=== PATIENT | male | born 1955 | race Caucasian/White ===

== ENCOUNTER 2018-06-16 09:57 | Emergency (ER) | payer OTHER ==
[~2018-06-16] VITALS: Ht 162.6 cm; Wt 65.0 kg
[2018-06-16 09:59] VITALS: BP 151/73; PULSE 67; RESP 16; Ht 162.6 cm; Wt 65.0 kg
--- NOTE | 2018-06-16 12:23 | ERD ---
ER Documentation Chief Complaint Chief Complaint BIB RA FOR EVAL OF LEFT KNEE PAIN AND RAN OUT OF CATHETERS FOR SELF CATH HPI This is a 63-year-old male, who is currently homeless who presents with chronic knee pain that radiates to his left calf. He has not had a fever, he has no history of trauma, or lacerations. Symptoms are aggravated by movement, they are not alleviated by anything. He also self caths, and request Gómez catheter bags. This is been a chronic issue. ROS All systems reviewed and are negative except as per history of present illness. Physical Exam Vitals Vital Signs Date Temp Pulse Resp B/P (MAP) Pulse Ox O2 O2 Flow FiO2 Time Delivery Rate 06/16/18 98.3 67 16 151/73 99 09:59 (99) Physical Exam Const: Afebrile, nontoxic, disheveled Head: Atraumatic Eyes: Normal conjunctiva ENT: Normal external ears, nose and mouth. Neck: Resp: Normal respiratory effort Cardio: Abd: Soft, nontender Skin: Back: Ext: There is trace pitting edema bilaterally, there is no induration, no crepitus, there is no joint laxity, negative anterior posterior drawer sign Neur: Awake and alert Psych: Normal mood and affect Results 24 hrs Current Medications Medications Dose Sig/Rocky Start Time Status Last (Trade) Ordered Route PRN Stop Time Admin Dose Reason Admin 1,000 mg ONCE STAT 06/16/18 DC Acetaminophen PO 12:57 (Tylenol 06/16/18 12:58 Tab) Procedures/MDM 53-year-old male presents with knee pain. His pain is atraumatic, he has no joint effusion, no swelling, and no infectious signs or symptoms. Trace edema was noted, and ultrasound was ordered to evaluate for DVT, this was negative, x- ray shows osteoarthritis, consistent with his chronic pain. He was seen by social work, who assisted with resources, and extra catheters were provided to him, at discharge the patient was in no acute distress. Departure Diagnosis: Primary Impression: Knee pain Chronicity: chronic Laterality: left Qualified Codes: M25.562 - Pain in left knee; G89.29 - Other chronic pain Condition: CHRISTINE Mckeon MD Jun 16, 2018 12:23
[2018-06-16] MEDS ORDERED: ACETAMINOPHEN 500 MG TAB PO STA (12:57)
== END 2018-06-16 14:33 | disposition home or self-care (01) ==
LOC: FTE 09:57
DX: M25.562 Pain in left knee (principal)
CPT/HCPCS: 73562; 93971; Z7502; Z7610; A4310

== ENCOUNTER 2018-06-18 08:18 | Emergency (ER) | payer OTHER ==
[~2018-06-18] VITALS: Ht 157.5 cm; Wt 80.0 kg
[2018-06-18 08:21] VITALS: Ht 157.5 cm; Wt 80.0 kg
--- NOTE | 2018-06-18 08:51 | ERD ---
ER Documentation Chief Complaint Chief Complaint Patient need a supple of in and out urine catheters HPI This is a 63-year-old undomiciled male with a past medical history of urinary retention requiring self-catheterization for several years who is now presenting for catheter refill. The patient reportedly recently became homeless and has been having trouble with getting his straight catheter is refilled. The patient was here 2 days ago and spoke with the social security specialist who was able to help him set up an ability to refill the catheters as an outpatient. Unfortunately, the patient ran out this morning and is hoping to obtain a refill for the next 2 days. The patient reportedly self caths himself 4-6 times a day. The patient lasted this this morning. He does report mild suprapubic discomfort. The patient is also requesting that we complete a urinalysis as he does get urinary tract infections frequently. The patient does have urinary urgency, but this is chronic for him. He does not endorse any significant dysuria today. The patient reports that Keflex is usually given to him and has been successful in the past. The patient denies feeling sick recently. The patient denies fever or chills. The patient has had no headache or vision changes. The patient does not endorse neck or back pain. The patient denies lightheadedness or dizziness. The patient has had no chest pain or trouble breathing. The patient denies nausea or vomiting. The patient denies changes to bowel movements. The patient has had no focal deficits. The patient has had no weakness or numbness or tingling to the face or extremities. ROS All systems reviewed and are negative except as per history of present illness. Allergies Allergies: Coded Allergies: No Known Allergy (Unverified , 06/16/18) PMhx/Soc History of Surgery: No Anesthesia Reaction: No Hx Neurological Disorder: No Hx Respiratory Disorders: Yes (COPD) Hx Cardiac Disorders: Yes (Hypertension, hyperlipidemia, coronary artery disease with previous ND status post stenting) Hx Psychiatric Problems: Yes Hx Miscellaneous Medical Probl: Yes (Urinary retention, chronic kidney disease) Hx Alcohol Use: No Hx Substance Use: No Hx Tobacco Use: No FmHx Family History: No diabetes Physical Exam Vitals Vital Signs Date Temp Pulse Resp B/P (MAP) Pulse Ox O2 O2 Flow FiO2 Time Delivery Rate 06/18/18 98.3 72 20 162/79 99 08:21 (106) Physical Exam Const: No apparent distress, well-developed, well-nourished Head: Normocephalic, Atraumatic Eyes: Normal Conjunctiva. Extraocular movements grossly intact. ENT: Normal External Ears, Nose and Mouth. Neck: Full range of motion. No meningismus. Resp: Clear to auscultation bilaterally, No wheezes, rales or rhonchi Cardio: Regular rate and rhythm. No murmurs, rubs or gallops Abd: Soft, non distended. Mild suprapubic discomfort without exquisite tenderness. Normal bowel sounds Skin: No petechiae or rashes Back: No midline tenderness. No CVA tenderness Ext: No cyanosis, or edema Neur: Awake and alert, oriented 4. Cranial nerves intact. No facial droop. No focal deficits. Ambulatory with a walker. Psych: Normal Mood and Affect Results 24 hrs Laboratory Tests Test 06/18/18 08:55 Urine Color YELLOW Urine Clarity CLEAR Urine pH 6.0 Urine Specific [place] 1.012 Urine Ketones NEGATIVE mg/dL Urine Nitrite NEGATIVE mg/dL Urine Bilirubin NEGATIVE mg/dL Urine Urobilinogen NEGATIVE mg/dL Urine Leukocyte Esterase NEGATIVE Jennifer/ul Urine Microscopic RBC 1 /HPF Urine Microscopic WBC 3 /HPF Urine Hemoglobin NEGATIVE mg/dL Urine Glucose NEGATIVE mg/dL Urine Total Protein 2+ mg/dl Current Medications Medications Dose Sig/Rocky Start Time Status Last (Trade) Ordered Route PRN Stop Time Admin Dose Reason Admin 650 mg ONCE ONCE 06/18/18 DC Acetaminophen PO 09:00 (Tylenol 06/18/18 09:01 Tab) Procedures/MDM MDM The patient's presentation warrants further investigation. Previous medical records, if available, were reviewed. LABS The patient's laboratory testing was obtained and reviewed. No emergent treatment was required unless described below. Urine: No E/o acute infection or hematuria TREATMENT/DISPOSITION The patient presents for chronic urinary retention and the need for straight catheter refill. The patient will be provided catheters. The patient requested that a urinalysis be completed. The patient does not have a infection and does not require treatment. The patient does not have any other abdominal pain. The patient does not have any evidence of peritonitis. The patient does not have clinical symptoms concerning for mesenteric ischemia or ischemic colitis. The patient does not have right upper quadrant tenderness, and I have low suspicion for gallstones, cholecystitis or biliary colic. The patient does not have any epigastric pain. I have low suspicion for gastritis, PUD or GERD. The patient does not have left upper quadrant tenderness. I have low suspicion for pancreatitis. The patient does not have any right lower quadrant tenderness, or periumbilical tenderness. I have low suspicion for appendicitis. The patient does not have any left lower quadrant tenderness, and I have low suspicion for diverticulosis or diverticulitis. The patient does not have any flank tenderness. His symptoms are not consistent with nephrolithiasis or renal colic. I do not suspect pyelonephritis. The patient does not have any palpable pulsatile mass or severe abdominal pain radiating to the back. I have low suspicion for aortic aneurysm, dissection or rupture. Later in the patient's course, the patient requested Tylenol for chronic knee pain and arthritis. This was provided. DISCHARGE Upon reevaluation of the patient, symptoms have improved. No emergent diagnoses were identified. At this time, I feel that the patient stable for discharge. The patient was instructed to follow-up with a primary care physician in 1-3 days. The patient will be given strict precautions with which to return to the emergency department. Prescriptions: None The patient's blood pressure was elevated at greater than 120/80 while in the emergency department. The patient was otherwise stable with no evidence of hypertensive urgency or emergency. The patient does not require admission for blood pressure control. I have discussed with the patient the risks of hypertension. I have instructed the patient to return to the ER for any new or worsening symptoms including chest pain, shortness of breath, headache, blurred vision, confusion, nausea, vomiting or LOC. I have advised the patient to follow up with the primary care physician for outpatient monitoring and treatment for hypertension in 1-3 days. Disclaimer: Inadvertent spelling and grammatical errors are likely due to EHR/dictation software use and do not reflect on the overall quality of patient care. Note that the electronic time recorded on this note does not necessarily reflect the actual time of the patient encounter. Departure Diagnosis: Primary Impression: Urinary retention Condition: Stable Patient Instructions: Urinary Retention, Male Additional Instructions: Thank you for for coming to [facility] for your care today. Please ask your nurse or provider if you have questions about your care today and do not leave until all your questions have been answered. Please use any medications given as directed and follow-up with your doctor (or the doctor you were referred to) in the next 1-3 days. If you do not have a primary care doctor you may follow up at the [facility] or [facility] (listed below). You may also use motrin and tylenol as needed for fever and/or pain unless instructed otherwise by your provider or nurse. Indications for more urgent fo llow-up have been discussed, but you may return to the Emergency Department at ANY time for any worrisome or worsening symptoms. If you have abdominal pain, please know that no test or exam you received is perfect and you should follow up within 8 hours for continued pain. If you had any imaging studies today, such as an X-Ray or CT Scan, these studies will be reviewed later by a radiologist. You will be called if there are important findings that were not identified today, so make sure the contact information you provided at registration is correct. If you received any narcotic pain control medicine today, such as Vicodin, Morph ine or Dilaudid, your coordination and judgment may be affected for a number of hours. Please do not drive or operate heavy machinery, and you may want someone to assist you at home. If you were given a prescription for narcotic medication, be aware that it is very addictive- use sparingly and only if necessary. PLEASE SEEK FURTHER EVALUATION AND MANAGEMENT AT YOUR DOCTORS OFFICE WITHIN THE NEXT 1-3 DAYS. IT IS YOUR RESPONSIBILITY TO MAKE AN APPOINTMENT FOR FOLOW-UP CARE. IF YOU HAVE A PRIMARY DOCTOR, PLEASE CALL THEIR OFFICE TO SCHEDULE AN APPOINTMENT FOR FOLLOW UP. IF YOU DO NOT HAVE A PRIMARY DOCTOR YOU CAN CALL OUR PHYSICIAN REFERRAL HOTLINE AT IF YOU CAN NOT AFFORD TO SEE A PHYSICIAN YOU CAN CHOSE FROM THE FOLLOWING [facility] CLINICS: [facility] [address] [facility] [address] [facility]. [facility] [address] [facility] [address] [facility] [address] [facility]. [facility]. [address] ISIDORO CAGLE MD Jun 18, 2018 08:51
[2018-06-18] MEDS ORDERED: ACETAMINOPHEN 325 MG TAB PO ONE (09:00)
== END 2018-06-18 09:38 | disposition home or self-care (01) ==
LOC: E/R 08:18
DX: R33.9 Retention of urine, unspecified (principal); I10 Essential (primary) hypertension; I25.10 Atherosclerotic heart disease of native coronary artery without angina pectoris; J44.9 Chronic obstructive pulmonary disease, unspecified; I25.2 Old myocardial infarction
CPT/HCPCS: 81001; Z7502; Z7610; 99283; A4310

== ENCOUNTER 2018-06-27 14:05 | Inpatient (IN) | payer OTHER ==
[~2018-06-27] VITALS: Ht 157.5 cm; Wt 68.2 kg
--- NOTE | 2018-06-27 14:24 | ERD ---
ER Documentation Chief Complaint Chief Complaint BIB RA FOR EVAL OF SI PLANS TO JUMP IN FRONT OF TRAIN. PT HOMELESS HPI The patient is a 63-year-old male, presenting to the ER because of suicidal ideation, he plans to determine front of the train, denies auditory/visual hallucination. He also complains of cough for the last month and fever for the last couple of days but denies chest pain, abdominal pain, vomiting. He is homeless, denies smoking or drinking past medical history: COPD, chronic kidney disease, depression, anxiety, asthma, hypertension Past surgical history: None ROS All systems reviewed and are negative except as per history of present illness. Medications Home Meds No Active Prescriptions or Reported Meds Allergies Allergies: Coded Allergies: No Known Allergy (Unverified , 06/27/18) PMhx/Soc History of Surgery: No Anesthesia Reaction: No Hx Neurological Disorder: No Hx Respiratory Disorders: Yes (COPD) Hx Cardiac Disorders: Yes Hx Psychiatric Problems: Yes Hx Miscellaneous Medical Probl: Yes (Urinary retention, chronic kidney disease) Hx Alcohol Use: No Hx Substance Use: No Hx Tobacco Use: No Physical Exam Vitals Vital Signs Date Temp Pulse Resp B/P (MAP) Pulse Ox O2 O2 Flow FiO2 Time Delivery Rate 06/27/18 98.5 58 18 136/69 96 Room Air 18:39 (91) 06/27/18 62 17 131/70 95 Room Air 18:00 (90) 06/27/18 62 18 124/68 96 Room Air 17:00 (86) 06/27/18 101.4 15:18 06/27/18 88 20 156/96 96 Room Air 15:00 (116) 06/27/18 101.4 72 20 135/72 99 14:12 (93) Physical Exam Const: No acute distress. Head: Atraumatic. Eyes: Normal Conjunctiva. ENT: Normal External Ears, Nose and Mouth. Neck: Full range of motion. No meningismus. Resp: Bibasilar crackle Cardio: Regular rate and rhythm. Abd: Soft, non distended, normal bowel sounds, non tender. Skin: No petechiae or rashes. Back: No midline or flank tenderness. Ext: No cyanosis, or edema. Neur: Awake and alert. No focal deficit Psych: Normal Mood and Affect. Result Diagram: 06/27/18 1435 06/27/18 1435 Results 24 hrs Laboratory Tests Test 06/27/18 14:35 06/27/18 15:01 06/27/18 15:15 06/27/18 15:22 White Blood Count 8.1 10^3/ul Red Blood Count 4.51 10^6/ul Hemoglobin 13.3 g/dl Hematocrit 39.4 % Mean Corpuscular 87.4 fl Volume Mean Corpuscular 29.5 pg Hemoglobin Mean Corpuscular 33.8 g/dl Hemoglobin Concent Red Cell 14.6 % Distribution Width Platelet Count 159 10^3/UL Mean Platelet 10.1 fl Volume Immature 0.400 % Granulocytes % Neutrophils % 74.5 % Lymphocytes % 10.5 % Monocytes % 14.2 % Eosinophils % 0.0 % Basophils % 0.4 % Nucleated Red Blood 0.0 /100WBC Cells % Immature 0.030 10^3/ul Granulocytes # Neutrophils # 6.0 10^3/ul Lymphocytes # 0.9 10^3/ul Monocytes # 1.2 10^3/ul Eosinophils # 0.0 10^3/ul Basophils # 0.0 10^3/ul Nucleated Red Blood 0.0 10^3/ul Cells # Prothrombin Time 13.4 Sec Prothrombin Time 1.0 Ratio INR International 1.01 Normalized Ratio Activated 34.9 Sec Partial Thromboplas t Time Sodium Level 135 mmol/L Potassium Level 3.5 mmol/L Chloride Level 102 mmol/L Carbon Dioxide 21 mmol/L Level Anion Gap 12 Blood Urea Nitrogen 36 mg/dl Creatinine 1.95 mg/dl Est Glomerular 35 mL/min Filtrat Rate mL/min Glucose Level 118 mg/dl Calcium Level 9.1 mg/dl Total Bilirubin 0.6 mg/dl Direct Bilirubin 0.00 mg/dl Indirect Bilirubin 0.6 mg/dl Aspartate Amino 35 IU/L Transf (AST/SGOT) Alanine 36 IU/L Aminotransferase (A LT/SGPT) Alkaline 68 IU/L Phosphatase Troponin I 0.020 ng/ml Total Protein 8.2 g/dl Albumin 4.1 g/dl Globulin 4.10 g/dl Albumin/Globulin 1.00 Ratio Salicylates Level < 1.0 mg/dl Acetaminophen Level < 10.0 ug/ml Ethyl Alcohol Level < 10.0 mg/dl Urine Color YELLOW Urine Clarity SLIGHTLY CLOUDY Urine pH 5.0 Urine Specific 1.015 [place] Urine Ketones NEGATIVE mg/dL Urine Nitrite NEGATIVE mg/dL Urine Bilirubin NEGATIVE mg/dL Urine Urobilinogen NEGATIVE mg/dL Urine Leukocyte NEGATIVE Jennifer/ul Esterase Urine Microscopic 1 /HPF RBC Urine Microscopic 5 /HPF WBC Urine Bacteria FEW /HPF Urine Granular FEW /HPF Casts Urine Mucus FEW /HPF Urine Hemoglobin 1+ mg/dL Urine Glucose NEGATIVE mg/dL Urine Total Protein 3+ mg/dl Urine Opiates NEGATIVE Screen Urine Barbiturates NEGATIVE Urine Amphetamines NEGATIVE Screen Urine NEGATIVE Benzodiazepines Screen Urine Cocaine NEGATIVE Screen Urine Cannabinoids NEGATIVE POC Venous Lactate 1.1 mmol/L Bedside Urine pH 5.5 (LAB) Bedside Urine 3+ Protein (LAB) Bedside Urine Negative Glucose (UA) Bedside Urine Negative Ketones (LAB) Bedside Urine Blood 2+ Bedside Urine Negative Nitrite (LAB) Bedside Urine Negative Leukocyte Esterase (L Current Medications Medications Dose Sig/Rocky Start Time Status Last (Trade) Ordered Route PRN Stop Time Admin Dose Reason Admin 650 mg ONCE ONCE 06/27/18 DC 06/27/18 Acetaminophen PO 15:00 06/27/18 15:18 (Tylenol 15:01 Tab) Piperacillin 50 ml @ ONCE ONCE 06/27/18 DC 06/27/18 Sod/ 100 mls/hr IVPB 16:30 06/27/18 16:34 Tazobactam 16:59 Sod Vancomycin 250 ml @ ONCE ONCE 06/27/18 DC 06/27/18 HCl 125 mls/hr IVPB 16:30 06/27/18 16:59 18:29 1 tab ONCE ONCE 06/27/18 Cancel Acetaminophen PO 18:00 06/27/18 / 18:01 Hydrocodone Bitart ([place] (5/325)) Procedures/[place] [address] Radiology Main Line: [phone] DIAGNOSTIC IMAGING REPORT Patient: AYDE BUSBY : 1955 Age: 63 Sex: M MR #: [id number] DOS: 06/27/18 1439 Ordering MD: KIMANI SHEPPARD MD Location: E/R Room/Bed: PROCEDURE: Chest xray. CLINICAL INDICATION: Possible sepsis TECHNIQUE: A portable semiupright AP view of the chest was obtained. COMPARISON: None. FINDINGS: The cardiac silhouette is mildly enlarged. The lungs are well expanded and show normal vascularity. There is patchy air space disease in both lower lung zones. There is a large more confluent ovoid opacity projecting in the left lower lung zone. No evidence of a pleural effusion or pneumothorax. The skeletal structures and soft tissues are unremarkable. IMPRESSION: Mild cardiomegaly. Bilateral lower lung zone airspace disease which may be related to atelectasis and / or pneumonia. Large confluent ovoid opacity projecting in the left lower lung zone, inc ompletely evaluated. Upright PA and lateral views are recommended for further evaluation. RPTAT:PP .Norma Estrada MD, Date Time Electronically viewed and signed by .Norma Estrada MD, MD on 06/27/2018 14:56 .K/ CC: KIMANI SHEPPARD MD [id number] [place] [address] Radiology Main Line: [phone] DIAGNOSTIC IMAGING REPORT Patient: AYDE BUSBY : 1955 Age: 63 Sex: M MR #: [id number] DOS: 06/27/18 0000 Ordering MD: KIMANI SHEPPARD MD Location: E/R Room/Bed: PROCEDURE: CT chest without contrast. CLINICAL INDICATION: Shortness of breath and cough TECHNIQUE: CT scan of the chest without contrast was performed on a multi- slice CT scanner. The patient was scanned without administration of intravenous contrast. Coronal and sagittal reformatted images were obtained from the axial source images. One or more of the following dose reduction techniques were used: Automated exposure control. Adjustment of the mA and/or kV according to patient size. Use of iterative reconstruction technique. DICOM images are available DLP vol 399.9 mGy CTDI 12.2 mGy-cm COMPARISON: 06/27/2018 FINDINGS: Lungs: There is moderate peribronchial ground-glass and nodular consolidation seen in the left lower lung involving the basilar segments of the left lower lo be and lingula with left-sided airways wall thickening and lower lung airways occlusion. There is mild right middle lobe peribronchial ground-glass and nodular opacity and right lower lobe basilar opacity as well. There is no effusion or pneumothorax. There are bilateral fat containing diaphragmatic hernias which are small on the right and moderate size on the left. Mediastinum: Normal. Cardiovascular: Aortic and coronary artery atherosclerotic calcifications are present. There is mild cardiomegaly.. Lymph nodes: There are no enlarged axillary or mediastinal lymph nodes. Musculoskeletal: Degenerative changes are seen within the thoracic spine and shoulders with no acute osseous abnormality. Upper abdomen: There is no acute upper abdominal abnormality. Other: None IMPRESSION: Bilateral lower lobe peribronchial nodular ground-glass consolidation is seen at the bases more pronounced on the left side suggestive for airways inflammation/infection with foci of distal airways occlusion. Fat containing bilateral diaphragmatic hernias. Atherosclerotic disease with mild cardiomegaly. RPTAT: AA .Marcelina Reese MD, MD Date Time Electronically viewed and signed by .Marcelina Reese MD, MD on 06/27/2018 16:08 .J/ CC: KIMANI SHEPPARD MD [id number] EKG: Read by emergency physician Rate/Rhythm: Normal Sinus Rhythm 68 beats/min QRS, ST, T-waves: No ST elevation, no T inversion, lafb, inferior q's Impression: abnormal EKG MEDICAL MAKING DECISION: The patient is a 63-year-old male, presenting with acute pneumonia, acute suicidal ideation. He was treated with Tylenol for fever, vancomycin IV and Zosyn IV for acute pneumonia The differential diagnoses considered include but are not limited to asthma, COPD, pneumonia, pulmonary embolus, pleural effusion, congestive heart failure, medical noncompliance, decompensated psychiatric illness. Departure Diagnosis: Primary Impression: PNA (pneumonia) Additional Impressions: Suicidal ideation Anemia Condition: Stable Comments I discussed the findings with the patient. I discussed the patient with Dr Liz at 6:35p , who was made aware of the lab, the treatment, the patient condition. The patient is admitted to [facility] with a sitter Disclaimer: Inadvertent spelling and grammatical errors are likely due to EHR/dictation software use and do not reflect on the overall quality of patient care. Also, please note that the electronic time recorded on this note does not necessarily reflect the actual time of the patient encounter. KIMANI SHEPPARD MD Jun 27, 2018 14:24
[2018-06-27] MEDS ORDERED: ACETAMINOPHEN 325 MG TAB PO ONE (15:00)
[2018-06-27] MEDS ORDERED: VANCOMYCIN 1 GM (PMX) 250 ML IVPB ONE (16:30)
[2018-06-27] MEDS ORDERED: PIPER-TAZO 2.25 GM (PMX) 50 ML IVPB ONE (16:30)
[2018-06-27] MEDS ORDERED: HYDROCODONE/APAP (5/325) TAB PO ONE (18:00)
[2018-06-27 22:00] VITALS: BP 148/75; PULSE 66; RESP 18
[2018-06-27 22:14] VITALS: Ht 157.5 cm; Wt 68.2 kg
[2018-06-27] MEDS ORDERED: HYDR-3672 PO (22:49)
[2018-06-27] MEDS ORDERED: SIMV40TA2 PO (22:49)
[2018-06-27] MEDS ORDERED: CHOL400C PO (22:54)
[2018-06-27] MEDS ORDERED: ZOLPIDEM 5 MG TAB PO PRN (23:30)
[2018-06-28] MEDS: LEVOFLOXACIN 500MG/D5W (PMX) 100 ML IVPB SCH ×2 (00:39→23:09)
[2018-06-28] MEDS: ALBUTEROL/IPRATROPIUM (NEB) 3 ML AMP HHN SCH ×6 (01:41→20:14)
[2018-06-28 02:33] VITALS: BP 107/53; PULSE 69; RESP 18
[2018-06-28 07:21] VITALS: BP 130/65; RESP 18
[2018-06-28] MEDS ORDERED: MEASLES,MUMPS,RUBELLA VACCINE INJ SC* ONE (09:00)
[2018-06-28] MEDS ORDERED: DIPHTH/TET/ACEL PERTUSS (ADULT) 0.5 ML VIAL IM* ONE (09:00)
[2018-06-28] MEDS ORDERED: LEVO500T48 PO (10:47)
--- NOTE | 2018-06-28 13:58 | HP ---
DATE OF ADMISSION: 06/27/2018 CHIEF COMPLAINT: Cough and shortness of breath. HISTORY OF PRESENT ILLNESS: A 63-year-old male presented to emergency room with complaints of cough for the last one prior to admission. He also reported subjective fevers and occasional shortness of breath. The patient has COPD, but stopped smoking in 2014. He also reported suicidal ideation. The patient has been homeless since end of 04/2018. He plans to throw himself in front of train or over dose on medications. He denies any psychiatric history. He denies any previous history of psychosis . PAST MEDICAL HISTORY: 1. COPD. 2. Cirrhosis. 3. Chronic kidney disease. 4. Chronic depression. 5. Asthma. 6. Hypertension. PAST SURGICAL HISTORY: None. SOCIAL HISTORY: The patient has history of heavy alcohol abuse, quit drinking in 12/2017. He also h as history of heavy smoking and quit smoking in 2014. PHYSICAL EXAMINATION: GENERAL: Well-developed, well-nourished elderly male who is in no apparent distress. VITAL SIGNS: Stable. He is afebrile. HEENT: Extraocular muscles are intact. Pupils are equal and reactive to light bilaterally. Sclerae are anicteric. Oropharynx is clear and moist. NECK: Supple. No JVD, no carotid bruits. LUNGS: Bilateral rhonchi. CARDIAC: Regular rate and rhythm. No murmurs, rubs or gallops. ABDOMEN: Soft, nontender, nondistended, normoactive bowel sounds. EXTREMITIES: No clubbing, cyanosis or edema. NEUROLOGICAL: Nonfocal. ASSESSMENT: 1. A 63-year-old male with community-acquired pneumonia. 2. Suicidal ideation. 3. Chronic obstructive pulmonary disease. 4. Hypertension. 5. Chronic depression. 6. Homeless. PLAN: 1. Place in med/surg observation. 2. IV Levaquin. 3. Respiratory treatment. 4. Resume home medications. 5. Psychiatric evaluation was requested. 6. The patient is medically stable for discharge to a psychiatric facility, following evaluation by psychiatric nurse practitioner. Dictated By: AUSTYN DÍAZ/KEV Conf#: [id number] DID#: [id number] CC: [employer] SERVICE INVESTIGATOR;*End*
[2018-06-28 14:03] VITALS: BP 159/71; PULSE 76; RESP 18
--- NOTE | 2018-06-28 16:38 | PSY ---
Date/Time of Note Date/Time of Note DATE: 06/28/18 TIME: 16:31 Psychiatric Subjective Eval Consent Pt consented to telemedicine: No Subjective Evaluation Patient location: inpatient Chief Complaint: BIB RA FOR EVAL OF SI PLANS TO JUMP IN FRONT OF TRAIN. PT HOMELESS Reason for consult: SUICIDAL IDEATION History of present illness Patient is a 63-year-old male admitted for fevers and shortness of breath. On a [id number] evaluation, patient reports feeling hopeless and helpless he reports anxiety over his living situations, however he denies suicidal ideation and contracted for safety. Patient states he was on Remeron but unable to continue the medication because of lack of fund. Explained the importance of continuing on medazepam and he verbalized understanding Hospitalization: other Medical history Problems Medical Problems: (1) Anemia Status: Acute (2) Knee pain Status: Acute (3) PNA (pneumonia) Status: Acute (4) Suicidal ideation Status: Acute (5) Urinary retention Status: Acute (6) UTI (urinary tract infection) Status: Acute Allergies: Coded Allergies: adenosine (Verified Allergy, Severe, can't breathe, 06/27/18) Substance Abuse Substance abuse history: No Prior substance abuse treatmen: No Social History Marital status: single DPA/Conservatorship: No Psychiatric Objective Eval Review of Systems: Review of Systems: Not Applicable Physical Examination: Physical Examination: Not Applicable Sleep: Terminal Energy: Decreased Interest: Decreased Mental Status Examination: Appearance: Disheveled Eye Contact: Poor Behavior: Cooperative Speech: Soft Mood: Depressed, Anxious Though Process: Linear Orientation: x4 Insight: Mild Laboratory Results Laboratory Tests Test 06/27/18 14:35 06/27/18 15:01 06/27/18 15:15 06/27/18 15:22 White Blood Count 8.1 10^3/ul Red Blood Count 4.51 10^6/ul Hemoglobin 13.3 g/dl Hematocrit 39.4 % Mean Corpuscular 87.4 fl Volume Mean Corpuscular 29.5 pg Hemoglobin Mean Corpuscular 33.8 g/dl Hemoglobin Concent Red Cell 14.6 % Distribution Width Platelet Count 159 10^3/UL Mean Platelet 10.1 fl Volume Immature 0.400 % Granulocytes % Neutrophils % 74.5 % Lymphocytes % 10.5 % Monocytes % 14.2 % Eosinophils % 0.0 % Basophils % 0.4 % Nucleated Red Blood 0.0 /100WBC Cells % Immature 0.030 10^3/ul Granulocytes # Neutrophils # 6.0 10^3/ul Lymphocytes # 0.9 10^3/ul Monocytes # 1.2 10^3/ul Eosinophils # 0.0 10^3/ul Basophils # 0.0 10^3/ul Nucleated Red Blood 0.0 10^3/ul Cells # Prothrombin Time 13.4 Sec Prothrombin Time 1.0 Ratio INR International 1.01 Normalized Ratio Activated 34.9 Sec Partial Thromboplas t Time Sodium Level 135 mmol/L Potassium Level 3.5 mmol/L Chloride Level 102 mmol/L Carbon Dioxide 21 mmol/L Level Anion Gap 12 Blood Urea Nitrogen 36 mg/dl Creatinine 1.95 mg/dl Est Glomerular 35 mL/min Filtrat Rate mL/min Glucose Level 118 mg/dl Calcium Level 9.1 mg/dl Total Bilirubin 0.6 mg/dl Direct Bilirubin 0.00 mg/dl Indirect Bilirubin 0.6 mg/dl Aspartate Amino 35 IU/L Transf (AST/SGOT) Alanine 36 IU/L Aminotransferase (A LT/SGPT) Alkaline 68 IU/L Phosphatase Troponin I 0.020 ng/ml Total Protein 8.2 g/dl Albumin 4.1 g/dl Globulin 4.10 g/dl Albumin/Globulin 1.00 Ratio Salicylates Level < 1.0 mg/dl Acetaminophen Level < 10.0 ug/ml Ethyl Alcohol Level < 10.0 mg/dl Urine Color YELLOW Urine Clarity SLIGHTLY CLOUDY Urine pH 5.0 Urine Specific 1.015 [place] Urine Ketones NEGATIVE mg/dL Urine Nitrite NEGATIVE mg/dL Urine Bilirubin NEGATIVE mg/dL Urine Urobilinogen NEGATIVE mg/dL Urine Leukocyte NEGATIVE Jennifer/ul Esterase Urine Microscopic 1 /HPF RBC Urine Microscopic 5 /HPF WBC Urine Bacteria FEW /HPF Urine Granular FEW /HPF Casts Urine Mucus FEW /HPF Urine Hemoglobin 1+ mg/dL Urine Glucose NEGATIVE mg/dL Urine Total Protein 3+ mg/dl Urine Opiates NEGATIVE Screen Urine Barbiturates NEGATIVE Urine Amphetamines NEGATIVE Screen Urine NEGATIVE Benzodiazepines Screen Urine Cocaine NEGATIVE Screen Urine Cannabinoids NEGATIVE POC Venous Lactate 1.1 mmol/L Bedside Urine pH 5.5 (LAB) Bedside Urine 3+ Protein (LAB) Bedside Urine Negative Glucose (UA) Bedside Urine Negative Ketones (LAB) Bedside Urine Blood 2+ Bedside Urine Negative Nitrite (LAB) Bedside Urine Negative Leukocyte Esterase (L Test 06/27/18 22:51 Lactic Acid Level 0.7 mmol/L Assessment and Plan Assessment/Diagnosis Diagnosis Major depressive disorder severe recurrent without psychosis Recommendation/Plan Medication Management Remeron 30 mg at bedtime Vistaril 25 mg PRN every 6 hours for anxiety Multiple antipsychotics: No Psychotherapy Provide supportive Discharge Disposition: Other Legal Status: Voluntary (Patient does not meet criteria for 5150 hold) CHARITY CANDELARIA NP Jun 28, 2018 16:38
[2018-06-28] MEDS ORDERED: hydrOXYzine PAMOATE 25 MG CAP PO PRN (17:00)
[2018-06-28 20:14] VITALS: BP 135/71; PULSE 70; RESP 20
[2018-06-28] MEDS ORDERED: ATORVASTATIN 20 MG TAB PO SCH (21:00)
[2018-06-28] MEDS ORDERED: MIRTAZAPINE 15 MG TAB PO SCH (21:00)
[2018-06-29] MEDS: ALBUTEROL/IPRATROPIUM (NEB) 3 ML AMP HHN SCH ×3 (00:35→09:38)
[2018-06-29 01:40] VITALS: BP 133/69; PULSE 74; RESP 19
[2018-06-29 07:21] VITALS: BP 152/75; PULSE 70; RESP 18
--- NOTE | 2018-06-29 09:09 | PDOCDIS ---
Discharge Instructions CONDITION [id number] Patient Condition: [id number] Good HOME CARE INSTRUCTIONS: [id number] Diet Instructions: [id number] FOLLOW UP/APPOINTMENTS Follow-up Plan pcp 1 week AUSTYN TANG MD Jun 29, 2018 09:09
[2018-06-29] MEDS ORDERED: HYDR25CA98 PO (09:42)
[2018-06-29] MEDS ORDERED: MIRT15TA5 PO (09:42)
[2018-06-29 12:53] VITALS: BP 149/80; PULSE 73; RESP 19
--- NOTE | 2018-06-30 01:00 | DS ---
DATE OF ADMISSION: 06/27/2018 DATE OF DISCHARGE: 06/29/2018 DISCHARGE DIAGNOSES: 1. Community-acquired pneumonia. 2. COPD. 3. Hypertension. 4. Chronic depression. 5. Homeless. HOSPITAL COURSE: A 63-year-old male presented to emergency room with complaints of green sputum for the last 6 months prior to admission. Initial evaluation revealed evidence of a community-acquired p neumonia. The patient also reported suicidal ideation. He was evaluated by a psychiatric nurse prac titjez. There was no ongoing suicidal ideation. Continuing treatment with Remeron was recommended . The patient was also seen by a manager social. He is homeless and arrangement was made for [facility] placement. He is in a stable condition for discharge. MEDICATIONS ON DISCHARGE: Include: 1. Levaquin 500 mg p.o. daily. 2. Lipitor 20 mg p.o. daily. 3. Hydralazine 50 mg p.o. t.i.d. 4. Hydroxyzine 25 mg every 4 hours as needed. 5. Remeron 15 mg p.o. at bedtime. 6. Follow up with PCP in one week. Dictated By: AUSTYN DÍAZ/NTS Conf#: [id number] DID#: [id number] CC: ISIDORO HOWARD MD; CHRISTINE ZAYAS MD;*End*
== END 2018-06-29 15:55 | disposition home or self-care (01) | DRG 194 ==
LOC: E/R 14:05 → 5EC 18:47
PROVIDERS: ADMIT Internal Medicine; ATTEND Internal Medicine
DX: J18.9 Pneumonia, unspecified organism (principal); R45.851 Suicidal ideations; F33.2 Major depressive disorder, recurrent severe without psychotic features; J44.9 Chronic obstructive pulmonary disease, unspecified; Z59.0 Homelessness; K74.60 Unspecified cirrhosis of liver; I12.9 Hypertensive chronic kidney disease with stage 1 through stage 4 chronic kidney disease, or unspecified chronic kidney disease; N18.9 Chronic kidney disease, unspecified; D64.9 Anemia, unspecified; Z87.440 Personal history of urinary (tract) infections; Z87.891 Personal history of nicotine dependence
CPT/HCPCS: 36415; 71045; 71250; 80053; 80307; 81001; 81003; 83605; 84484; 85025; 85610; 85730; 87086; 87400; 90715; 93005; 94640; 96365; 96366; 96368; A4310; J1956; J2543; J3370